=== PATIENT | male | born 1965 | race African-American/Black ===

== ENCOUNTER 2018-04-01 16:51 | Emergency (ER) | payer OTHER ==
[2018-04-01] MEDS ORDERED: Azithromycin 250 MG Tab PO ONE (17:50)
--- NOTE | 2018-04-01 18:42 | EDM.PDOC ---
ED HPI GENERAL MEDICAL PROBLEM - General Chief Complaint: Respiratory Problem Stated Complaint: SORE THROAT AND COUGH Time Seen by Provider: 04/01/18 17:29 Source of Information: Reports: Patient, RN Notes Reviewed - History of Present Illness INITIAL COMMENTS - FREE TEXT/NARRATIVE: 53 year old male with cough, sinus attila., sore throat for 6 to 7 days, getting worse, coughing up yellow and green phlegm with a lot of sinus drainage and pressre throat Pain Score (Numeric/FACES): 8 - Related Data Allergies Allergy/AdvReac Type Severity Reaction Status Date / Time No Known Allergies Allergy Verified 04/01/18 17:23 Home Meds: Home Meds Candesartan Cilexetil 0 mg PO DAILY 04/01/18 [History] Hydrochlorothiazide [Microzide] 25 mg PO DAILY 04/01/18 [History] amLODIPine [Norvasc] 0 mg PO DAILY 04/01/18 [History] Past Medical History - Past Health History Medical/Surgical History: Denies Medical/Surgical History Social & Family History - Tobacco Use Years of Tobacco use: 4 Used Tobacco, but Quit: No - Caffeine Use Caffeine Use: Reports: Coffee ED ROS GENERAL - Review of Systems Review Of Systems: See Below Constitutional: Reports: Chills. Denies: Fever HEENT: Reports: Rhinitis, Sinus Problem, Throat Pain Respiratory: Reports: Shortness of Breath, Cough Cardiovascular: Reports: Chest Pain (with coughing) GI/Abdominal: Denies: Abdominal Pain, Vomiting Musculoskeletal: Reports: Other (some achiness) Skin: Reports: No Symptoms Neurological: Denies: Headache ED EXAM, GENERAL - Physical Exam Exam: See Below General Appearance: Alert, Mild Distress Eye Exam: Bilateral Eye: PERRL Throat/Mouth: Normal Inspection, Normal Oropharynx Head: Facial Tenderness (to palp of max. sinuses). No: Facial Swelling Neck: Supple Respiratory/Chest: No Respiratory Distress, Lungs Clear. No: Rhonchi, Wheezing Cardiovascular: Regular Rate, Rhythm Neurological: Alert, Oriented, No Motor/Sensory Deficits Skin Exam: Warm, Dry, Normal Color Course - Vital Signs Last Recorded V/S: Last Vital Signs Temp 98.0 F 04/01/18 17:47 Pulse 76 04/01/18 17:47 Resp 20 04/01/18 17:47 BP 131/79 04/01/18 17:47 Pulse Ox 94 L 04/01/18 17:47 - Orders/Labs/Meds Meds: Medications Discontinued Medications Generic Name Dose Route Start Last Admin Trade Name Milady PRN Reason Stop Dose Admin Azithromycin 500 mg 04/01/18 17:50 04/01/18 17:55 Zithromax PO 04/01/18 17:51 500 mg ONETIME ONE Administration Departure - Departure Time of Disposition: 18:39 Disposition: Home, Self-Care 01 Condition: Fair Clinical Impression: Bronchitis Sinusitis Qualifiers: Sinusitis location: unspecified location Chronicity: acute Recurrence: not specified as recurrent Qualified Code(s): J01.90 - Acute sinusitis, unspecified - Discharge Information Instructions: Upper Respiratory Infection, Adult, Sinusitis, Adult Referrals: PCP,None [Primary Care Provider] - Forms: ED Department Discharge Additional Instructions: Given given Zithromax 500 mg oral while here in the ED, continue Zithromax 500 mg tomorrow and then 250 mg for the following 4 days., This will take at least 3 -5 days, probably longer to totally get back to normal but symptoms will start gradually improving day by day. Clinic if not much better within 3-5 days as expected.
== END 2018-04-01 18:51 | disposition home or self-care (01) ==
LOC: JD.ED 16:51
DX: J40 Bronchitis, not specified as acute or chronic (principal); J01.90 Acute sinusitis, unspecified; F17.290 Nicotine dependence, other tobacco product, uncomplicated; Z79.899 Other long term (current) drug therapy
CPT/HCPCS: 99283; A9270

== ENCOUNTER 2018-09-10 17:24 | Emergency (ER) | payer OTHER ==
--- NOTE | 2018-09-10 17:53 | EDM.PDOC ---
ED HPI GENERAL MEDICAL PROBLEM - General Chief Complaint: ENT Problem Stated Complaint: L EAR PAIN Time Seen by Provider: 09/10/18 17:35 Source of Information: Reports: Patient, RN Notes Reviewed History Limitations: Reports: No Limitations - History of Present Illness INITIAL COMMENTS - FREE TEXT/NARRATIVE: Patient is a 53-year-old male who presents to the ED for the evaluation of left- sided ear pain. The patient notes that he had some increased pain and swelling to his left ear. He notes this has been bothering him for about 2 weeks now. But this is getting worse and not getting much better. He denies any drainage from the ear. He has not been able to seek care management as he works a lot, he got rained out today, so he comes to the ER for evaluation. He denies any loss of hearing, tinnitus, headache, difficulty chewing or swallowing, any blurred or double vision. He notes some tenderness when he pushes on the outside of his ear as well. He has not taken any anti-inflammatory medication such as ibuprofen or Aleve for this. Left Ear Pain Score (Numeric/FACES): 8 - Related Data Allergies Allergy/AdvReac Type Severity Reaction Status Date / Time No Known Allergies Allergy Verified 09/10/18 17:33 Home Meds: Home Meds Candesartan Cilexetil 0 mg PO DAILY 04/01/18 [History] Hydrochlorothiazide [Microzide] 25 mg PO DAILY 04/01/18 [History] amLODIPine [Norvasc] 0 mg PO DAILY 04/01/18 [History] Ciprofloxacin/Dexamethasone [Ciprodex Otic Susp] 4 drop OT BID #1 bottle [Rx] Past Medical History - Past Health History Medical/Surgical History: Denies Medical/Surgical History Cardiovascular History: Reports: High Cholesterol, Hypertension Social & Family History - Tobacco Use Smoking Status *Q: Never Smoker - Caffeine Use Caffeine Use: Reports: Coffee ED ROS ENT - Review of Systems Review Of Systems: See Below Constitutional: Denies: Fever, Chills HEENT: Reports: Ear Pain (Left ear) Respiratory: Reports: No Symptoms Cardiovascular: Reports: No Symptoms Endocrine: Reports: No Symptoms GI/Abdominal: Reports: No Symptoms : Reports: No Symptoms Musculoskeletal: Reports: No Symptoms Skin: Reports: No Symptoms Neurological: Reports: No Symptoms Psychiatric: Reports: No Symptoms Hematologic/Lymphatic: Reports: No Symptoms Immunologic: Reports: No Symptoms ED EXAM, ENT - Physical Exam Exam: See Below Exam Limited By: No Limitations General Appearance: Alert, WD/WN, No Apparent Distress Eye Exam: Bilateral Eye: EOMI, Normal Inspection, PERRL Ears: Normal External Exam, Auricular Tenderness (tenderness when the tragus is depressed), Mastoid Tenderness, Canal Swelling (mild), Other (normal EAC and TM on right side.). No: Auricular Erythema, Auricular Ecchymosis, Mastoid Swelling , Canal Discharge, TM Bulging, TM Fluid, TM Perforation, Cerumen Impaction Nose: Normal Inspection Mouth/Throat: Normal Inspection, Normal Gums, Normal Lips, Normal Oropharynx, Normal Teeth Head: Atraumatic, Normocephalic Neck: Normal Inspection, Supple, Non-Tender, Full Range of Motion Respiratory/Chest: No Respiratory Distress, Lungs Clear, Normal Breath Sounds, No Accessory Muscle Use, Chest Non-Tender Cardiovascular: Normal Peripheral Pulses, Regular Rate, Rhythm, No Murmur Neurological: Alert, Oriented, Normal Cognition, No Motor/Sensory Deficits Psychiatric: Normal Affect, Normal Mood Skin: Warm, Dry, Intact, Normal Color, No Rash Course - Vital Signs Last Recorded V/S: Last Vital Signs Temp 98.1 F 09/10/18 17:34 Pulse 86 09/10/18 17:34 Resp 18 09/10/18 17:34 BP 158/108 H 09/10/18 17:34 Pulse Ox 100 09/10/18 17:34 - Re-Assessments/Exams Free Text/Narrative Re-Assessment/Exam: 09/10/18 18:10 Patient presents to the ED for the evaluation of left-sided ear pain. His left ear canal is mildly swollen, and he does have tenderness with palpation of the tragus and mastoid process. I have prescribed Ciprodex drops, 4 drops in the left ear 2 times daily for 7 days. Have recommended that he follow up with a provider after the antibiotics are done to make sure that the infection is clearing. He is understanding of this. Departure - Departure Time of Disposition: 18:03 Disposition: Home, Self-Care 01 Condition: Fair Clinical Impression: Otitis externa Qualifiers: Otitis externa type: unspecified type Chronicity: acute Laterality: left Qualified Code(s): H60.502 - Unspecified acute noninfective otitis externa, left ear - Discharge Information *PRESCRIPTION DRUG MONITORING PROGRAM REVIEWED*: No *COPY OF PRESCRIPTION DRUG MONITORING REPORT IN PATIENT JUAN C: No Prescriptions: Ciprofloxacin/Dexamethasone [Ciprodex Otic Susp] 4 drop OT BID #1 bottle Instructions: Otitis Externa, [id number], Ear Drops, Adult, [id number] Referrals: Niurka Correa MD [Primary Care Provider] - Forms: ED Department Discharge Additional Instructions: You have been evaluated in the ED today for your left sided ear pain. You have what is called otitis externa, which is an infection of the ear canal on the left side. Please use the antibiotic drops as directed for one week. The drops have been electronically prescribed to the [place] [facility] located in the [facility]. Recommend that you follow up in clinic after the course of antibiotics is done to make sure the infection is clearing. You may take 400-600 mg ibuprofen every 6 hours as needed for pain relief. Please return to the ED if her symptoms should change or worsen.
== END 2018-09-10 18:14 | disposition home or self-care (01) ==
LOC: JD.ED 17:24
DX: H60.502 Unspecified acute noninfective otitis externa, left ear (principal); Z79.899 Other long term (current) drug therapy
CPT/HCPCS: 99282; 99283

== ENCOUNTER 2020-07-30 20:51 | Emergency (ER) | payer OTHER ==
[2020-07-30] MEDS ORDERED: Acetaminophen 325 MG Tab PO ONE (22:14)
[2020-07-30] MEDS ORDERED: predniSONE 20 MG Tab PO ONE (22:47)
--- NOTE | 2020-07-30 22:53 | EDM.PDOC ---
ED HPI GENERAL MEDICAL PROBLEM - General Chief Complaint: Lower Extremity Injury/Pain Stated Complaint: LT FOOT SWELLING Time Seen by Provider: 07/30/20 22:07 Source of Information: Reports: Patient, RN Notes Reviewed - History of Present Illness INITIAL COMMENTS - FREE TEXT/NARRATIVE: 55 yr old male with L foot pain. Started yesterday, much worse today. No known injury. works as heavy duty truck mechanic. No open wounds, fever or chills. No hx gout. Left Foot Pain Score (Numeric/FACES): 10 - Related Data Allergies Allergy/AdvReac Type Severity Reaction Status Date / Time No Known Allergies Allergy Verified 07/30/20 21:05 Home Meds: Home Meds Candesartan Cilexetil 0 mg PO DAILY 04/01/18 [History] amLODIPine [Norvasc] 0 mg PO DAILY 04/01/18 [History] hydroCHLOROthiazide [Microzide] 25 mg PO DAILY 04/01/18 [History] Acetaminophen/HYDROcodone [[place] 325-5 MG] 1 tab PO Q6H PRN #14 tablet 07/30/20 [Rx] predniSONE [Prednisone] 50 mg PO DAILY #5 tablet 07/30/20 [Rx] Past Medical History - Past Health History Medical/Surgical History: Denies Medical/Surgical History HEENT History: Reports: Impaired Vision Cardiovascular History: Reports: High Cholesterol, Hypertension Respiratory History: Reports: None Gastrointestinal History: Reports: None Genitourinary History: Reports: None Musculoskeletal History: Reports: None Neurological History: Reports: None Psychiatric History: Reports: None Endocrine/Metabolic History: Reports: None Immunologic History: Reports: None Oncologic (Cancer) History: Reports: None Dermatologic History: Reports: None - Infectious Disease History Infectious Disease History: Reports: Novel Coronavirus - Past Surgical History HEENT Surgical History: Reports: None GI Surgical History: Reports: None Male Surgical History: Reports: None Musculoskeletal Surgical History: Reports: None Social & Family History - Family History Cardiac: Reports: CAD, [place] Neurological: Reports: CVA - Tobacco Use Tobacco Use Status *Q: Former Tobacco User Used Tobacco, but Quit: Yes Month/Year Tobacco Last Used: 03/2011 - Caffeine Use Caffeine Use: Reports: None - Alcohol Use Number of Drinks Per Day: 5 - Recreational Drug Use Recreational Drug Use: No Review of Systems - Review of Systems Review Of Systems: See Below Constitutional: Denies: Chills, Fever Respiratory: Denies: Shortness of Breath Cardiovascular: Denies: Chest Pain GI/Abdominal: Denies: Nausea, Vomiting Musculoskeletal: Reports: Foot Pain Skin: Denies: Rash, Erythema Neurological: Reports: No Symptoms ED EXAM, GENERAL - Physical Exam Exam: See Below General Appearance: Alert, Moderate Distress Head: Atraumatic Respiratory/Chest: No Respiratory Distress Extremities: Other (tender anterior mid foot, no visible swelling, no warmth, no erythema, ankle, leg nontender) Neurological: Alert, Oriented, No Motor/Sensory Deficits Skin Exam: Warm, Dry, Normal Color Course - Vital Signs Last Recorded V/S: Last Vital Signs Temp 99.1 F 07/30/20 21:09 Pulse 104 H 07/30/20 21:09 Resp 20 07/30/20 21:09 BP 150/102 H 07/30/20 21:09 Pulse Ox 97 07/30/20 21:09 - Orders/Labs/Meds Orders: Active Orders 24 hr Category Date Time Status Foot Comp Min 3V Lt [CR] Stat Exams 07/30/20 22:14 Taken Durable Medical Equipment for Discharge [DME for Oth 07/30/20 22:47 Ordered Discharge] [COMM] Stat Meds: Medications Discontinued Medications Generic Name Dose Route Start Last Admin Trade Name Renatoq PRN Reason Stop Dose Admin Acetaminophen 975 mg 07/30/20 22:14 07/30/20 22:24 Acetaminophen 325 Mg Tab PO 07/30/20 22:15 975 mg NOW ONE Administration Prednisone 40 mg 07/30/20 22:47 07/30/20 22:54 Prednisone 20 Mg Tab PO 07/30/20 22:48 40 mg ONETIME ONE Administration - Re-Assessments/Exams Free Text/Narrative Re-Assessment/Exam: 07/31/20 03:15 Foot X rays possible hairline proximal L 2nd metarsal but do believe it is overlying shadow. No displaced fx present. Great toe and base of large toe nontender. Possible gout. Will start him on prednisone 50 mg daily for 5 days. Of note he does appear to be dramatizing his pain to some degree. Will put him in a walking boot. Will watch for Radiologist read of foot xrays. Discharge instr. as documented. Departure - Departure Time of Disposition: 22:48 Disposition: Home, Self-Care 01 Condition: Fair Clinical Impression: Foot pain, left - Discharge Information Prescriptions: Acetaminophen/HYDROcodone [[place] 325-5 MG] 1 tab PO Q6H PRN #14 tablet PRN Reason: Pain predniSONE [Prednisone] 50 mg PO DAILY #5 tablet Instructions: Foot Pain Referrals: Kai Marley MD [Primary Care Provider] - Forms: ED Department Discharge Additional Instructions: Walking boot for 1 week or until pain resolves. Tylenol or excedrin q 6hr or hydrocodone if needed for severe pain. Do not take them both at the same time, do not drive or work when taking hydrocodone. Prednisone 50 mg daily for 5 days for inflamation. Physician will call you with Radiologist report tomorrow morning when that becomes available. Follow up clinic if not much better within 5 to 7 days as expected. Sepsis Event Note (ED) - Evaluation Sepsis Screening Result: No Definite Risk - Focused Exam Vital Signs: Vital Signs Temp Pulse Resp BP Pulse Ox 07/30/20 21:09 99.1 F 104 H 20 150/102 H 97 - My Orders Last 24 Hours: My Active Orders 07/30/20 22:14 Foot Comp Min 3V Lt [CR] Stat 07/30/20 22:47 Durable Medical Equipment for Discharge [DME for Discharge] [COMM] Stat - Assessment/Plan Last 24 Hours: My Active Orders 07/30/20 22:14 Foot Comp Min 3V Lt [CR] Stat 07/30/20 22:47 Durable Medical Equipment for Discharge [DME for Discharge] [COMM] Stat
--- NOTE | 2020-07-31 09:22 | CR ---
Left foot: 4 views left foot were obtained. Comparison: No prior foot study is available. Plantar spur is noted. Soft tissue swelling is noted. No acute fracture, dislocation or other bony abnormality is appreciated. Impression: 1. Plantar spur and soft tissue swelling. 2. No acute osseous abnormality is appreciated. Diagnostic code #2
== END 2020-07-30 23:26 | disposition home or self-care (01) ==
LOC: JD.ED 20:51
DX: M79.672 Pain in left foot (principal); I10 Essential (primary) hypertension; Z79.899 Other long term (current) drug therapy; Z87.891 Personal history of nicotine dependence
CPT/HCPCS: 73630; 99283; A9270; J7512

== ENCOUNTER 2020-11-09 11:35 | Emergency (ER) | payer OTHER ==
[2020-11-09] MEDS ORDERED: Sodium Chloride 0.9% 10 ML Syringe FLUSH PRN ×2 (12:27→13:58)
--- NOTE | 2020-11-09 13:06 | EDM.PDOC ---
ED HPI GENERAL MEDICAL PROBLEM - General Chief Complaint: Respiratory Problem Stated Complaint: SOB X 3 WEEKS Time Seen by Provider: 11/09/20 12:19 Source of Information: Reports: Patient, RN Notes Reviewed History Limitations: Reports: No Limitations - History of Present Illness INITIAL COMMENTS - FREE TEXT/NARRATIVE: Patient is a 55-year-old male who presents to the ER for evaluation of his shortness of breath that has been going on for the last two or 3 weeks. Patient notes that when he is at rest, he is fine, but anytime he starts coughing, or moving much at all, he becomes extremely winded. He did go to the walk-in clinic at [place], roughly 2 weeks ago had a Covid screen, [place] virus testing, other laboratory evaluation and everything was unremarkable, there is no sign of pneumonia, Gage virus test was negative, Covid screen was negative. He was given a few different medications for his cough, and sent home with general recommendations. States this has been going on again for some time. He was placed on a prednisone burst for roughly 5 days as well, and he states that he is about to the end of that. 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 He was given some IV antibiotics and oral antibiotics that seem to clear that up, and steroids seem to help when he has the sarcoidosis issue. He had a fever at the beginning of his symptoms, but has not had any fever at this time. He states he does have a cough, that is getting up white frothy sputum, with no discoloration. He is having nausea but no vomiting or diarrhea. He does have shortness of breath with ambulation, but not at rest. 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 Other Treatments [employer]: PCP prescribed meds pt has been taking except for today. Chest Pain Score (Numeric/FACES): 10 - Related Data Allergies Allergy/AdvReac Type Severity Reaction Status Date / Time No Known Allergies Allergy Verified 07/30/20 21:05 Home Meds: Home Meds Candesartan Cilexetil 0 mg PO DAILY 04/01/18 [History] amLODIPine [Norvasc] 0 mg PO DAILY 04/01/18 [History] hydroCHLOROthiazide [Microzide] 25 mg PO DAILY 04/01/18 [History] predniSONE 20 mg PO ASDIRECTED #30 tab 11/09/20 [Rx] Past Medical History - Past Health History Medical/Surgical History: Denies Medical/Surgical History HEENT History: Reports: Impaired Vision Cardiovascular History: Reports: High Cholesterol, Hypertension Respiratory History: Reports: None Other Respiratory History: Sarcoid in left lung [id number], treated in [facility], Dr. Hallman [employer] Gastrointestinal History: Reports: None Genitourinary History: Reports: None Musculoskeletal History: Reports: None, Gout Neurological History: Reports: None Psychiatric History: Reports: None Endocrine/Metabolic History: Reports: None Immunologic History: Reports: None Oncologic (Cancer) History: Reports: None Dermatologic History: Reports: None - Infectious Disease History Infectious Disease History: Reports: Novel Coronavirus, Pertussis (Whooping Cough) - Past Surgical History HEENT Surgical History: Reports: None Respiratory Surgical History: Reports: Lung Biopsies Other Respiratory Surgeries/Procedures: Left lung GI Surgical History: Reports: None Male Surgical History: Reports: None Musculoskeletal Surgical History: Reports: None Social & Family History - Family History Cardiac: Reports: CAD, NM Neurological: Reports: CVA - Tobacco Use Tobacco Use Status *Q: Current Every Day Tobacco User Years of Tobacco use: 10 Packs/Tins Daily: 0.2 Used Tobacco, but Quit: Yes Month/Year Tobacco Last Used: 10/2020 - Caffeine Use Caffeine Use: Reports: None - Alcohol Use Days Per Week of Alcohol Use: 7 Number of Drinks Per Day: 5 Total Drinks Per Week: 35 Date of Last Drink: 11/08/20 - Recreational Drug Use Recreational Drug Use: No ED ROS GENERAL - Review of Systems Review Of Systems: Comprehensive ROS is negative, except as noted in HPI. ED EXAM, GENERAL - Physical Exam Exam: See Below Exam Limited By: No Limitations General Appearance: Alert, WD/WN, No Apparent Distress Respiratory/Chest: No Respiratory Distress, Lungs Clear, Normal Breath Sounds, No Accessory Muscle Use, Chest Non-Tender Cardiovascular: Normal Peripheral Pulses, Regular Rate, Rhythm, No Edema Peripheral Pulses: 2+: Radial (L), Radial (R) Extremities: Normal Inspection, Normal Capillary Refill Neurological: Alert, Oriented, Normal Cognition, No Motor/Sensory Deficits Psychiatric: Normal Affect, Normal Mood Skin Exam: Warm, Dry, Intact, Normal Color, No Rash #1 Interpretation EKG Date: 11/09/20 Time: 13:19 Rhythm: NSR Rate (Beats/Min): 86 [place]: Normal P-Wave: Present QRS: Normal ST-T: Normal QT: Normal Comparison: NA - No Prior EKG EKG Interpretation Comments: No obvious ischemia or acute ST changes noted, reviewed by myself and Dr. Nieves. Course - Vital Signs Last Recorded V/S: Last Vital Signs Temp 97.4 F 11/09/20 11:58 Pulse 79 11/09/20 12:23 Resp 24 H 11/09/20 12:23 BP 110/80 11/09/20 12:23 Pulse Ox 94 L 11/09/20 12:23 - Orders/Labs/Meds Orders: Active Orders 24 hr Category Date Time Status Peripheral IV Care [RC] . DIRECTED Care 11/09/20 12:27 Ordered RESPIRATORY PANEL Stat Lab 11/09/20 13:15 Received Sodium Chloride 0.9% [Normal Saline] 100 ml Med 11/09/20 14:00 Active IV ASDIRECTED Sodium Chloride 0.9% [Saline Flush] Med 11/09/20 12:27 Active 10 ml FLUSH ASDIRECTED PRN Sodium Chloride 0.9% [Saline Flush] Med 11/09/20 13:58 Active 10 ml FLUSH ONETIME PRN Isolation [COMM] Routine Oth 11/09/20 13:18 Ordered Peripheral IV Insertion Adult [OM.PC] Routine Oth 11/09/20 12:27 Ordered Medication Orders Sodium Chloride (Normal Saline) 100 mls @ 75 mls/hr IV ASDIRECTED CARLOS Last Admin: 11/09/20 14:26 Dose: 75 mls/hr Documented by: CHEO Sodium Chloride (Sodium Chloride 0.9% 10 Ml Syringe) 10 ml FLUSH ASDIRECTED PRN PRN Reason: Keep Vein Open Last Admin: 11/09/20 14:51 Dose: 10 ml Documented by: SOPHY Sodium Chloride (Sodium Chloride 0.9% 10 Ml Syringe) 10 ml FLUSH ONETIME PRN PRN Reason: IV FLUSH Last Admin: 11/09/20 14:26 Dose: 10 ml Documented by: CHEO Labs: Laboratory Tests 11/09/20 11/09/20 11/09/20 Range/Units 12:35 13:25 13:25 WBC 8.04 (4.23-9.07) K/mm3 RBC 3.53 L (4.63-6.08) M/mm3 Hgb 12.2 L (13.7-17.5) gm/dl Hct 37.1 L (40.1-51.0) % MCV 105.1 H (79.0-92.2) fl MCH 34.6 H (25.7-32.2) pg MCHC 32.9 (32.2-35.5) g/dl RDW Std Deviation 50.3 H (35.1-43.9) fL Plt Count 219 (163-337) K/mm3 MPV 10.2 (9.4-12.3) fl Neut % (Auto) 70.0 H (34.0-67.9) % Lymph % (Auto) 15.0 L (21.8-53.1) % Emery % (Auto) 12.4 H (5.3-12.2) % Eos % (Auto) 0.6 L (0.8-7.0) Baso % (Auto) 0.1 (0.1-1.2) % Neut # (Auto) 5.62 H (1.78-5.38) K/mm3 Lymph # (Auto) 1.21 L (1.32-3.57) K/mm3 Emery # (Auto) 1.00 H (0.30-0.82) K/mm3 Eos # (Auto) 0.05 (0.04-0.54) K/mm3 Baso # (Auto) 0.01 (0.01-0.08) K/mm3 Manual Slide Review Abnormal smear PT (9.7-12.0) SECONDS INR APTT (21.7-31.4) SECONDS D-Dimer, Quantitative (0.19-0.50) mg/L Sodium (136-145) mEq/L Potassium (3.5-5.1) mEq/L Chloride (98-107) mEq/L Carbon Dioxide (21-32) mEq/L Anion Gap (5-15) BUN (7-18) mg/dL Creatinine (0.7-1.3) mg/dL Est Cr Clr Drug Dosing mL/min Estimated GFR (MDRD) (>60) mL/min BUN/Creatinine Ratio (14-18) Glucose (70-99) mg/dL Lactic Acid (0.4-2.0) mmol/L Calcium (8.5-10.1) mg/dL Magnesium (1.8-2.4) mg/dL Total Bilirubin (0.2-1.0) mg/dL AST (15-37) U/L ALT (16-63) U/L Alkaline Phosphatase (46-116) U/L Troponin I (0.00-0.056) ng/mL C-Reactive Protein 17.1 H* (<1.0) mg/dL NT-Pro-B Natriuret Pep (0-125) pg/mL Total Protein (6.4-8.2) g/dl Albumin (3.4-5.0) g/dl Globulin gm/dL Albumin/Globulin Ratio (1-2) Influenza Type A RNA Negative (NEGATIVE) Influenza Type B RNA Negative (NEGATIVE) Mycoplasma pneumon IgM (NEGATIVE) SARS-CoV-2 RNA (JOJO) Negative (NEGATIVE) 11/09/20 11/09/20 11/09/20 Range/Units 13:25 13:25 13:25 WBC (4.23-9.07) K/mm3 RBC (4.63-6.08) M/mm3 Hgb (13.7-17.5) gm/dl Hct (40.1-51.0) % MCV (79.0-92.2) fl MCH (25.7-32.2) pg MCHC (32.2-35.5) g/dl RDW Std Deviation (35.1-43.9) fL Plt Count (163-337) K/mm3 MPV (9.4-12.3) fl Neut % (Auto) (34.0-67.9) % Lymph % (Auto) (21.8-53.1) % Emery % (Auto) (5.3-12.2) % Eos % (Auto) (0.8-7.0) Baso % (Auto) (0.1-1.2) % Neut # (Auto) (1.78-5.38) K/mm3 Lymph # (Auto) (1.32-3.57) K/mm3 Emery # (Auto) (0.30-0.82) K/mm3 Eos # (Auto) (0.04-0.54) K/mm3 Baso # (Auto) (0.01-0.08) K/mm3 Manual Slide Review PT 13.7 H (9.7-12.0) SECONDS INR 1.29 APTT 28.9 (21.7-31.4) SECONDS D-Dimer, Quantitative 2.16 H (0.19-0.50) mg/L Sodium 133 L (136-145) mEq/L Potassium 3.0 L (3.5-5.1) mEq/L Chloride 97 L (98-107) mEq/L Carbon Dioxide 29 (21-32) mEq/L Anion Gap 10.0 (5-15) BUN 26 H (7-18) mg/dL Creatinine 1.7 H (0.7-1.3) mg/dL Est Cr Clr Drug Dosing 55.49 mL/min Estimated GFR (MDRD) 51 (>60) mL/min BUN/Creatinine Ratio 15.3 (14-18) Glucose 119 H (70-99) mg/dL Lactic Acid (0.4-2.0) mmol/L Calcium 8.3 L (8.5-10.1) mg/dL Magnesium 2.6 H (1.8-2.4) mg/dL Total Bilirubin 1.0 (0.2-1.0) mg/dL AST 60 H (15-37) U/L ALT 42 (16-63) U/L Alkaline Phosphatase 151 H (46-116) U/L Troponin I < 0.017 (0.00-0.056) ng/mL C-Reactive Protein (<1.0) mg/dL NT-Pro-B Natriuret Pep 140 H (0-125) pg/mL Total Protein 8.2 (6.4-8.2) g/dl Albumin 1.8 L (3.4-5.0) g/dl Globulin 6.4 gm/dL Albumin/Globulin Ratio 0.3 L (1-2) Influenza Type A RNA (NEGATIVE) Influenza Type B RNA (NEGATIVE) Mycoplasma pneumon IgM (NEGATIVE) SARS-CoV-2 RNA (JOJO) (NEGATIVE) 11/09/20 11/09/20 Range/Units 13:25 13:25 WBC (4.23-9.07) K/mm3 RBC (4.63-6.08) M/mm3 Hgb (13.7-17.5) gm/dl Hct (40.1-51.0) % MCV (79.0-92.2) fl MCH (25.7-32.2) pg MCHC (32.2-35.5) g/dl RDW Std Deviation (35.1-43.9) fL Plt Count (163-337) K/mm3 MPV (9.4-12.3) fl Neut % (Auto) (34.0-67.9) % Lymph % (Auto) (21.8-53.1) % Emery % (Auto) (5.3-12.2) % Eos % (Auto) (0.8-7.0) Baso % (Auto) (0.1-1.2) % Neut # (Auto) (1.78-5.38) K/mm3 Lymph # (Auto) (1.32-3.57) K/mm3 Emery # (Auto) (0.30-0.82) K/mm3 Eos # (Auto) (0.04-0.54) K/mm3 Baso # (Auto) (0.01-0.08) K/mm3 Manual Slide Review PT (9.7-12.0) SECONDS INR APTT (21.7-31.4) SECONDS D-Dimer, Quantitative (0.19-0.50) mg/L Sodium (136-145) mEq/L Potassium (3.5-5.1) mEq/L Chloride (98-107) mEq/L Carbon Dioxide (21-32) mEq/L Anion Gap (5-15) BUN (7-18) mg/dL Creatinine (0.7-1.3) mg/dL Est Cr Clr Drug Dosing mL/min Estimated GFR (MDRD) (>60) mL/min BUN/Creatinine Ratio (14-18) Glucose (70-99) mg/dL Lactic Acid 1.5 (0.4-2.0) mmol/L Calcium (8.5-10.1) mg/dL Magnesium (1.8-2.4) mg/dL Total Bilirubin (0.2-1.0) mg/dL AST (15-37) U/L ALT (16-63) U/L Alkaline Phosphatase (46-116) U/L Troponin I (0.00-0.056) ng/mL C-Reactive Protein (<1.0) mg/dL NT-Pro-B Natriuret Pep (0-125) pg/mL Total Protein (6.4-8.2) g/dl Albumin (3.4-5.0) g/dl Globulin gm/dL Albumin/Globulin Ratio (1-2) Influenza Type A RNA (NEGATIVE) Influenza Type B RNA (NEGATIVE) Mycoplasma pneumon IgM Negative (NEGATIVE) SARS-CoV-2 RNA (JOJO) (NEGATIVE) Meds: Medications Generic Name Dose Route Start Last Admin Trade Name Freq PRN Reason Stop Dose Admin Sodium Chloride 100 mls @ 75 mls/hr 11/09/20 14:00 11/09/20 14:26 Normal Saline IV 75 mls/hr ASDIRECTED CARLOS Administration Sodium Chloride 10 ml 11/09/20 12:27 11/09/20 14:51 Sodium Chloride 0.9% 10 Ml Syringe FLUSH 10 ml ASDIRECTED PRN Administration Keep Vein Open Sodium Chloride 10 ml 11/09/20 13:58 11/09/20 14:26 Sodium Chloride 0.9% 10 Ml Syringe FLUSH 10 ml ONETIME PRN Administration IV FLUSH Discontinued Medications Generic Name Dose Route Start Last Admin Trade Name Milady PRN Reason Stop Dose Admin Iopamidol 100 ml 11/09/20 13:58 11/09/20 14:26 Iopamidol 755 Mg/Ml 100 Ml Bottle IVPUSH 11/09/20 13:59 100 ml ONETIME ONE Administration Potassium Chloride 40 meq 11/09/20 14:26 11/09/20 15:11 Potassium Chloride 20 Meq Tab.Er PO 11/09/20 14:27 40 meq ONETIME ONE Administration - Re-Assessments/Exams Free Text/Narrative Re-Assessment/Exam: 11/09/20 13:07 Patient presents to the ED for his ongoing SOB x 3 weeks. He will be re-checked for COVID-19, we will take a chest x-ray and many other labs for initial ma nagement. I will also be in contact with infectious disease at [facility] for general information regarding mouse borne illness. 11/09/20 13:[address] Hobbs, with infectious disease at [facility], and I did go over the patient's course of management/care, and she is states that if the patient was likely infected with hantavirus, he would be more sick, and/or possibly . She said to wait for lab evaluation, as it is more common to have any sort of CHF, Covid or community-acquired pneumonia, which I already kind of new. She states that other mouse borne illness would be leptospirosis, but this requires saliva exchange or a bite. She also would recommend a respiratory viral panel to be obtained, and that he could possibly be swabbed for pertussis if his work-up came back negative. 11/09/20 14:29 Laboratory evaluation has resulted, CBC is essentially unremarkable for infectious purposes. D-dimer is elevated at over 2. Metabolic panel is impressive for a slightly low potassium at 3.0. CRP is elevated at 17.0. Troponin is undetectably low. The patient's influenza/Covid screen were negative for today's purposes. The patient's mycoplasma screen was also negative. Have ordered that respiratory viral panel to the taken, this will have to be sent to a reference lab, and will take some time to result. I have ordered a CTA of his chest for the elevated D-dimer with a negative Covid result for evaluation of poss PE vs other. Patient's chest x-ray also demonstrated patchy increased density within the left upper chest and minimal density within the left lower chest, please correlate if patient has positive Covid disease. 11/09/20 14:58 The patient's CTA did come back, and demonstrated patchy areas of increased density within the left upper and left lower lung as well as minimally on the right side, findings presumably represent diffuse pneumonia. Please consider repeating Covid study in several days to confirm a negative result. No findings of a pulmonary embolism. There are some calcified lymph nodes compatible with previous granulomatous exposure. 11/09/20 15:45 I did go over the patient's case and clinical results with Dr. Vargas our hospitalist, for direction on management of this patient since he is an internal medicine doctor. He believes the patient is suffering possibly from a hypersensitivity reaction, due to the CRP being elevated. He recommends taking the patient on prednisone 40 mg for 7 days, and then backing it down to 10 mg daily until he can be seen by pulmonology. Patient is already on prednisone, his last dose was supposed to be today. We will have him continue this as directed and give him a few more tablets for ongoing management. Patient verbalized understanding of this plan. Respiratory viral panel is still pending and we will call him with results once we receive these. Departure - Departure Time of Disposition: 15:46 Disposition: Home, Self-Care 01 Condition: Fair Clinical Impression: Viral pneumonia, Elevated C-reactive protein, Elevated d-dimer - Discharge Information *PRESCRIPTION DRUG MONITORING PROGRAM REVIEWED*: No *COPY OF PRESCRIPTION DRUG MONITORING REPORT IN PATIENT JUAN C: No Prescriptions: predniSONE 20 mg PO ASDIRECTED #30 tab Instructions: Shortness of Breath, Adult, [id number] Referrals: Kai Marley MD [Primary Care Provider] - Forms: ED Department Discharge, ED Return to Work/School Form Additional Instructions: You were evaluated in the ER today for your ongoing lung disease/illness. Your COVID-19 test at today's visit again came back negative. Your chest x-ray and CT are suspicious for viral pneumonia in your left lung. There are no antibiotics to be given for this, but you have been taking prednisone for management, and you will need to continue taking this. A respiratory viral panel was taken at today's visit as well for further evaluation of ongoing disease. This will take some time (48-72hrs) to result, we will call you if anything is positive or suspicious and needs immediate treatment. You will need to follow-up with pulmonology, please call Dr. Marley either today, early tomorrow morning to help facilitate a referral to pulmonology that you have seen before. Dosing for the prednisone will be 20 mg 2 times a day for the next 5 days, and then only 10 mg daily until gone. I am hoping that you will be able to get into pulmonology, and that you should not need any more of this medication prior to getting into pulmonology however if you run out, please call Dr. Marley for refill of this medication. This medication was electronically sent to the [facility] pharmacy located on [address]. You may continue to use all other medications as previously prescribed. Do not hesitate to return to the ER at any time if symptoms change or worsen. Sepsis Event Note (ED) - Evaluation Sepsis Screening Result: No Definite Risk - Focused Exam Vital Signs: Vital Signs Temp Pulse Resp BP Pulse Ox 11/09/20 12:23 79 24 H 110/80 94 L 11/09/20 11:58 97.4 F 83 16 104/70 93 L - My Orders Last 24 Hours: My Active Orders 11/09/20 12:27 Peripheral IV Care [RC] . DIRECTED Sodium Chloride 0.9% [Saline Flush] 10 ml FLUSH ASDIRECTED PRN Peripheral IV Insertion Adult [OM.PC] Routine 11/09/20 13:15 RESPIRATORY PANEL Stat 11/09/20 13:18 Isolation [COMM] Routine 11/09/20 13:58 Sodium Chloride 0.9% [Saline Flush] 10 ml FLUSH ONETIME PRN 11/09/20 14:00 Sodium Chloride 0.9% [Normal Saline] 100 ml IV ASDIRECTED - Assessment/Plan Last 24 Hours: My Active Orders 11/09/20 12:27 Peripheral IV Care [RC] . DIRECTED Sodium Chloride 0.9% [Saline Flush] 10 ml FLUSH ASDIRECTED PRN Peripheral IV Insertion Adult [OM.PC] Routine 11/09/20 13:15 RESPIRATORY PANEL Stat 11/09/20 13:18 Isolation [COMM] Routine 11/09/20 13:58 Sodium Chloride 0.9% [Saline Flush] 10 ml FLUSH ONETIME PRN 11/09/20 14:00 Sodium Chloride 0.9% [Normal Saline] 100 ml IV ASDIRECTED
[2020-11-09 13:19] LABS: CORONAVIRUS COVID-19 NAA NEGATIVE (NEGATIVE)
[2020-11-09] MEDS ORDERED: Iopamidol 755 Mg/ML 100 ML Bottle IVPUSH ONE (13:58)
[2020-11-09] MEDS ORDERED: Sodium Chloride 0.9% 100 ML IV SCH (14:00)
--- NOTE | 2020-11-09 14:09 | CR ---
Chest: Portable view of the chest was obtained. Comparison: No prior study. Patchy increased density within the left upper chest is seen. Minimal density within is noted within the left lower chest. Right lung is clear. Heart size and mediastinum are normal. Impression: 1. Patchy increased density within the left upper chest and minimal density within the left lower chest. Please correlate if patient has positive COVID disease. Diagnostic code #3
[2020-11-09] MEDS ORDERED: Potassium Chloride 20 MEQ Tab.ER PO ONE (14:26)
--- NOTE | 2020-11-09 14:48 | CT ---
CT chest Technique: Multiple axial sections through the chest were obtained. Intravenous contrast was utilized. Study has been performed as a pulmonary angiogram protocol. Comparison: Prior chest x-ray performed earlier on the same day (12:35 PM). Findings: Pulmonary arteries show no filling defects. Nothing is appreciated to indicate pulmonary embolism. Thoracic aorta shows no aneurysm. No mediastinal adenopathy is seen. No pericardial thickening is seen. Calcified lymph nodes are noted within the mediastinum. Calcified lymph nodes are also noted within the left hilar region. Small portion of the visualized upper abdominal structures show no discrete abnormality. Lung window settings were reviewed. Consolidation seen within a large portion of the left lower lung. Additional area of consolidation is seen within the superior left lower lung as well as left upper lung. Smaller areas of increased density are noted within the medial right lower lung. No pleural effusions or pneumothorax are seen. Bone window settings were reviewed which show no acute osseous abnormality. Impression: 1. Patchy areas of increased density within the left upper and left lower lung as well as minimally on the right side. Findings presumably represent diffuse pneumonia. Please consider repeating COVID study in several days to confirm negative result. 2. No findings of pulmonary embolism. 3. Calcified lymph nodes compatible with previous granulomatous exposure. Diagnostic code #3
[2020-11-10 13:46] LABS: BORDETELLA PARAPERT IS1001 Not Detected (Not Detected)
== END 2020-11-09 16:00 | disposition home or self-care (01) ==
LOC: JD.ED 11:35
DX: J12.9 Viral pneumonia, unspecified (principal); R79.1 Abnormal coagulation profile; R79.82 Elevated C-reactive protein (CRP); I10 Essential (primary) hypertension; M10.9 Gout, unspecified; Z72.0 Tobacco use; Z79.899 Other long term (current) drug therapy; Z20.822 Contact with and (suspected) exposure to COVID-19
CPT/HCPCS: 0240U; 36415; 71045; 71275; 80053; 83605; 83735; 83880; 84484; 85025; 85379; 85610; 85730; 86140; 86738; 87486; 87581; 87633; 87798; 93005; 99285; A9270; Q9967; 93010; 99284

== ENCOUNTER 2021-03-14 06:23 | Emergency (ER) | payer OTHER ==
[2021-03-14] MEDS ORDERED: Naproxen 500 MG Tab PO ONE (06:56)
--- NOTE | 2021-03-14 07:01 | EDM.PDOC ---
ED HPI GENERAL MEDICAL PROBLEM - General Chief Complaint: Lower Extremity Injury/Pain Stated Complaint: RT SWOLLEN FOOT Time Seen by Provider: 03/14/21 06:51 Source of Information: Reports: Patient History Limitations: Reports: No Limitations - History of Present Illness INITIAL COMMENTS - FREE TEXT/NARRATIVE: The patient presents with left foot pain. He does not recall an injury. 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 He did have gout in his right foot in July. He has no fever, chills, cough, chest pain or shortness of breath. Onset: Sudden Duration: Day(s): (yesterday) Location: Reports: Lower Extremity, Left (foot) Quality: Reports: Sharp Severity: Severe Improves with: Reports: None Worsens with: Reports: None Associated Symptoms: Reports: No Other Symptoms Treatments DESK ASSISTANT: Reports: Acetaminophen, NSAIDS Left Upper Feet Pain Score (Numeric/FACES): 10 - Related Data Allergies Allergy/AdvReac Type Severity Reaction Status Date / Time No Known Allergies Allergy Verified 03/14/21 06:42 Home Meds: Home Meds Candesartan Cilexetil 4 mg PO DAILY 04/01/18 [History] amLODIPine [Norvasc] 10 mg PO DAILY 04/01/18 [History] hydroCHLOROthiazide [Microzide] 25 mg PO DAILY 04/01/18 [History] Hydrocodone/Acetaminophen [Hydrocodone-Acetamin 5-325 mg] 1 - 2 each PO Q6H PRN #15 tablet 03/14/21 [Rx] predniSONE [Prednisone] 40 mg PO DAILY #10 tablet 03/14/21 [Rx] Past Medical History - Past Health History Medical/Surgical History: Denies Medical/Surgical History HEENT History: Reports: Impaired Vision Cardiovascular History: Reports: High Cholesterol, Hypertension Respiratory History: Reports: None Other Respiratory History: 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 Hallman [employer] Gastrointestinal History: Reports: None Genitourinary History: Reports: None Musculoskeletal History: Reports: Gout Neurological History: Reports: None Psychiatric History: Reports: None Endocrine/Metabolic History: Reports: None Immunologic History: Reports: None Oncologic (Cancer) History: Reports: None Dermatologic History: Reports: None - Infectious Disease History Infectious Disease History: Reports: Novel Coronavirus, Pertussis (Whooping Cough) - Past Surgical History HEENT Surgical History: Reports: None Respiratory Surgical History: Reports: Lung Biopsies Other Respiratory Surgeries/Procedures: Left lung GI Surgical History: Reports: None Male Surgical History: Reports: None Musculoskeletal Surgical History: Reports: None Social & Family History - Family History Cardiac: Reports: CAD, [place] Neurological: Reports: CVA - Tobacco Use Tobacco Use Status *Q: Never Tobacco User - Caffeine Use Caffeine Use: Reports: None - Alcohol Use Days Per Week of Alcohol Use: 7 Number of Drinks Per Day: 2 Total Drinks Per Week: 14 - Recreational Drug Use Recreational Drug Use: No Review of Systems - Review of Systems Review Of Systems: See Below Constitutional: Reports: No Symptoms Eyes: Reports: No Symptoms Ears: Reports: No Symptoms Nose: Reports: No Symptoms Mouth/Throat: Reports: No Symptoms Respiratory: Reports: No Symptoms Cardiovascular: Reports: No Symptoms GI/Abdominal: Reports: No Symptoms Genitourinary: Reports: No Symptoms Musculoskeletal: Reports: Other (Left foot pain) ED EXAM, GENERAL - Physical Exam Exam: See Below Exam Limited By: No Limitations General Appearance: Alert, No Apparent Distress Ears: Normal External Exam Nose: Normal Inspection Head: Atraumatic, Normocephalic Neck: Normal Inspection Respiratory/Chest: No Respiratory Distress Extremities: Other (Pain upon palpation to the top of his foot with good sensation and pulses.) Course - Vital Signs Last Recorded V/S: Last Vital Signs Temp 99.1 F 03/14/21 06:35 Pulse 88 03/14/21 06:35 Resp 18 03/14/21 06:35 BP 172/115 H 03/14/21 06:35 Pulse Ox 95 03/14/21 06:35 - Orders/Labs/Meds Orders: Active Orders 24 hr Category Date Time Status Foot Comp Min 3V Lt [CR] Stat Exams 03/14/21 06:56 Taken Meds: Medications Discontinued Medications Generic Name Dose Route Start Last Admin Trade Name Milady PRN Reason Stop Dose Admin Naproxen 500 mg 03/14/21 06:56 03/14/21 07:13 Naproxen 500 Mg Tab PO 03/14/21 06:57 500 mg ONETIME ONE Administration - Re-Assessments/Exams Free Text/Narrative Re-Assessment/Exam: 03/14/21 07:00 I ordered an x-ray and naprosyn. 03/14/21 07:27 His x-ray looks good. I feel he has gout. I will get him on prednisone and hydrocodone. Departure - Departure Time of Disposition: 07:30 Disposition: Home, Self-Care 01 Condition: Good Clinical Impression: Gout attack Qualifiers: Gout site: foot Gout etiology: other secondary cause Laterality: left Qualified Code(s): M10.472 - Other secondary gout, left ankle and foot - Discharge Information *PRESCRIPTION DRUG MONITORING PROGRAM REVIEWED*: Not Applicable *COPY OF PRESCRIPTION DRUG MONITORING REPORT IN PATIENT JUAN C: Not Applicable Prescriptions: Hydrocodone/Acetaminophen [Hydrocodone-Acetamin 5-325 mg] 1 - 2 each PO Q6H PRN #15 tablet PRN Reason: Pain predniSONE [Prednisone] 40 mg PO DAILY #10 tablet Referrals: Kai Marley MD [Primary Care Provider] - 1 Week Forms: ED Department Discharge Additional Instructions: Take the prednisone 40mg daily for 5 days. Take hydrocodone as needed for pain. Please return if you are worse. Sepsis Event Note (ED) - Evaluation Sepsis Screening Result: No Definite Risk - Focused Exam Vital Signs: Vital Signs Temp Pulse Resp BP Pulse Ox 03/14/21 06:35 99.1 F 88 18 172/115 H 95 - My Orders Last 24 Hours: My Active Orders 03/14/21 06:56 Foot Comp Min 3V Lt [CR] Stat - Assessment/Plan Last 24 Hours: My Active Orders 03/14/21 06:56 Foot Comp Min 3V Lt [CR] Stat
--- NOTE | 2021-03-14 08:54 | CR ---
Foot: 3 views of the left foot were obtained. Comparison: Prior left foot study of 07/30/20. Stable plantar spur is noted. Joint spaces are preserved. No acute fracture, dislocation or other bony abnormality is appreciated. Impression: 1. Stable plantar spur. 2. Nothing acute is seen on left foot exam. Diagnostic code #2
== END 2021-03-14 07:55 | disposition home or self-care (01) ==
LOC: JD.ED 06:23
DX: M10.472 Other secondary gout, left ankle and foot (principal)
CPT/HCPCS: 73630; 99283; A9270

== ENCOUNTER 2021-12-04 10:11 | Emergency (ER) | payer OTHER | END 2021-12-04 11:47 | disposition home or self-care (01) | LOC: JD.ED 10:11 | DX: M79.671 Pain in right foot (principal); F17.210 Nicotine dependence, cigarettes, uncomplicated; I10 Essential (primary) hypertension; Z79.899 Other long term (current) drug therapy | CPT/HCPCS: 73630-26-RT; 73630-RT; 99283; 99284 ==

== ENCOUNTER 2022-11-08 07:59 | Emergency (ER) | payer OTHER ==
[2022-11-08 09:19] LABS: BASOPHILS ABSOLUTE AUTO 0.03 K/mm3 (0.01-0.08); BASOPHILS PERCENT AUTO 0.8 % (0.1-1.2); EOSINOPHILS ABSOLUTE AUTO 0.23 K/mm3 (0.04-0.54); EOSINOPHILS PERCENT AUTO 6.4 (0.8-7.0); HEMATOCRIT 37.2 % (40.1-51.0); HEMOGLOBIN 12.4 gm/dl (13.7-17.5); LYMPHOCYTES ABSOLUTE AUTO 1.55 K/mm3 (1.32-3.57); LYMPHOCYTES PERCENT AUTO 43.4 % (21.8-53.1); MEAN CORPUSCULAR HEMOGLOBIN 32.7 pg (25.7-32.2); MEAN CORPUSCULAR HGB CONC 33.3 g/dl (32.2-35.5); MEAN PLATELET VOLUME 10.4 fl (9.4-12.3); MONOCYTES ABSOLUTE AUTO 0.74 K/mm3 (0.30-0.82); MONOCYTES PERCENT AUTO 20.7 % (5.3-12.2); NEUTROPHILS ABSOLUTE AUTO 1.02 K/mm3 (1.78-5.38); NEUTROPHILS PERCENT AUTO 28.7 % (34.0-67.9); RED BLOOD CELL COUNT 3.79 M/mm3 (4.63-6.08); WHITE BLOOD CELL COUNT,WBC 3.57 K/mm3 (4.23-9.07)
[2022-11-08 09:25] LABS: MEAN CORPUSCULAR VOLUME 98.2 fl (79.0-92.2); PLATELET COUNT,PLT 108 K/mm3 (163-337)
[2022-11-08 09:54] LABS: A/G RATIO 0.6 (1-2); ALBUMIN 2.6 g/dl (3.4-5.0); ANION GAP 10.3 (5-15); BILIRUBIN TOTAL 1.9 mg/dL (0.2-1.0); BUN/CREATININE RATIO 10.7 (14-18); CALCIUM 8.7 mg/dL (8.5-10.1); CREATININE 1.4 mg/dL (0.7-1.3); EST CRCL DRUG DOSING (CG) 60.11 mL/min; POTASSIUM,K 4.3 mEq/L (3.5-5.1); PROTEIN TOTAL,TP 7.3 g/dl (6.4-8.2)
[2022-11-08 09:55] LABS: APPEARANCE,URINE CLEAR (Clear); BILIRUBIN,URINE NEGATIVE (Negative); COLOR,URINE YELLOW (Yellow); GLUCOSE,URINE NEGATIVE (Negative); KETONES,URINE NEGATIVE (Negative); LEUKOCYTE ESTERASE,URINE NEGATIVE (Negative); NITRITE,URINE NEGATIVE (Negative); OCCULT BLOOD,URINE NEGATIVE (Negative); PH,URINE 5.5 (5.0-8.0); PROTEIN,URINE NEGATIVE (Negative)
[2022-11-08 10:43] LABS: RBC,URINE 0-5 /hpf (0-5); SQUAMOUS EPITHELIAL CELLS,UR 0-5 /hpf (0-5); WBC,URINE 0-5 /hpf (0-5)
[2022-11-08 10:44] LABS: BACTERIA,URINE MODERATE /hpf (FEW); MUCUS,URINE MODERATE /hpf (FEW)
[2022-11-08 10:57] LABS: SLIDE REVIEW ABNORMAL SMEAR
== END 2022-11-08 11:00 | disposition home or self-care (01) ==
LOC: JD.ED 07:59
DX: R60.0 Localized edema (principal); I10 Essential (primary) hypertension; Z86.16 Personal history of COVID-19; Z79.899 Other long term (current) drug therapy
CPT/HCPCS: 36415; 71045; 71045-26; 80053; 81001; 83880; 85025; 93005; 93010; 99284

== ENCOUNTER 2023-10-18 20:46 | Emergency (ER) | payer SELFPAY ==
[2023-10-18 21:57] LABS: BASOPHILS PERCENT AUTO 0.6 % (0.0-1.0); EOSINOPHILS ABSOLUTE AUTO 0.1 K/mm3 (0.0-0.4); EOSINOPHILS PERCENT AUTO 3.8 % (0.0-6.0); HEMATOCRIT 35.9 % (42.0-52.0); HEMOGLOBIN 12.3 gm/dl (14.0-18.0); IMMATURE GRAN ABSOLUTE AUTO 0.02 K/mm3 (0.00-0.05); IMMATURE GRAN PERCENT AUTO 0.6 % (0.0-0.4); LYMPHOCYTES ABSOLUTE AUTO 1.2 K/mm3 (1.0-4.8); LYMPHOCYTES PERCENT AUTO 36.1 % (24.0-44.0); MEAN CORPUSCULAR HEMOGLOBIN 36.4 pg (28.0-32.0); MEAN CORPUSCULAR HGB CONC 34.3 g/dl (32.0-36.0); MEAN CORPUSCULAR VOLUME 106.2 fl (83.0-99.0); MEAN PLATELET VOLUME 10.1 fl (9.4-12.4); MONOCYTES ABSOLUTE AUTO 0.5 K/mm3 (0.0-0.8); MONOCYTES PERCENT AUTO 14.2 % (0.0-8.0); NEUTROPHILS ABSOLUTE AUTO 1.5 K/mm3 (1.8-7.7); NEUTROPHILS PERCENT AUTO 44.7 % (41.0-71.0); PLATELET COUNT,PLT 87 K/mm3 (150-400); RED BLOOD CELL COUNT 3.38 M/mm3 (4.52-5.90); WHITE BLOOD CELL COUNT,WBC 3.38 K/mm3 (3.9-11.3)
[2023-10-18 22:18] LABS: SLIDE REVIEW ABNORMAL SMEAR
[2023-10-18 22:24] LABS: A/G RATIO 0.5 (1-2); ALBUMIN 2.3 g/dl (3.4-5.0); ANION GAP 8.5 (5-15); BILIRUBIN TOTAL 2.7 mg/dL (0.2-1.0); BUN/CREATININE RATIO 5.7 (14-18); C-REACTIVE PROTEIN 0.7 mg/dL (<0.30); CALCIUM 7.9 mg/dL (8.5-10.1); CREATININE 1.4 mg/dL (0.7-1.3); EST CRCL DRUG DOSING (CG) 59.38 mL/min; MAGNESIUM 1.9 mg/dL (1.8-2.4); POTASSIUM,K 3.5 mEq/L (3.5-5.1); PROTEIN TOTAL,TP 7.1 g/dl (6.4-8.2)
[2023-10-18] MEDS: Iopamidol 612 MG/ML 100 ML Bottle IVPUSH ONE (23:36)
[2023-10-19 01:17] LABS: APPEARANCE,URINE CLEAR (Clear); BILIRUBIN,URINE 2+ (Negative); COLOR,URINE DARK YELLOW (Yellow); GLUCOSE,URINE NEGATIVE (Negative); KETONES,URINE TRACE (Negative); LEUKOCYTE ESTERASE,URINE NEGATIVE (Negative); NITRITE,URINE NEGATIVE (Negative); OCCULT BLOOD,URINE NEGATIVE (Negative); PROTEIN,URINE TRACE (Negative)
[2023-10-19] MEDS: Calcium Carbonate 600 MG Tab PO ONE (01:37)
[2023-10-19 02:04] LABS: BACTERIA,URINE FEW /hpf (FEW); EPITHELIAL CELLS,URINE NOT SEEN /hpf (0-5); HYALINE CASTS,URINE 0-5 /lpf (0-5); MUCUS,URINE FEW /hpf (FEW); RBC,URINE NOT SEEN /hpf (0-5); WBC,URINE 0-5 /hpf (0-5)
== END 2023-10-19 01:41 | disposition home or self-care (01) ==
LOC: JD.ED 20:46
DX: K70.31 Alcoholic cirrhosis of liver with ascites (principal); I10 Essential (primary) hypertension; Z86.16 Personal history of COVID-19; Z79.899 Other long term (current) drug therapy
CPT/HCPCS: 36415; 74177; 80053; 81001; 83690; 83735; 84484; 85025; 86140; 93005; 99284; A9270; Q9967

== ENCOUNTER 2023-12-10 04:03 | Emergency (ER) | payer MEDICAID ==
[2023-12-10 04:51] LABS: BASOPHILS PERCENT AUTO 0.7 % (0.0-1.0); EOSINOPHILS ABSOLUTE AUTO 0.1 K/mm3 (0.0-0.4); EOSINOPHILS PERCENT AUTO 3.4 % (0.0-6.0); HEMATOCRIT 36.3 % (42.0-52.0); HEMOGLOBIN 12.5 gm/dl (14.0-18.0); LYMPHOCYTES ABSOLUTE AUTO 1.3 K/mm3 (1.0-4.8); LYMPHOCYTES PERCENT AUTO 45.1 % (24.0-44.0); MEAN CORPUSCULAR HEMOGLOBIN 34.3 pg (28.0-32.0); MEAN CORPUSCULAR HGB CONC 34.4 g/dl (32.0-36.0); MEAN CORPUSCULAR VOLUME 99.7 fl (83.0-99.0); MEAN PLATELET VOLUME 10.8 fl (9.4-12.4); MONOCYTES ABSOLUTE AUTO 0.5 K/mm3 (0.0-0.8); MONOCYTES PERCENT AUTO 18.3 % (0.0-8.0); NEUTROPHILS PERCENT AUTO 32.5 % (41.0-71.0); PLATELET COUNT,PLT 75 K/mm3 (150-400); RED BLOOD CELL COUNT 3.64 M/mm3 (4.52-5.90); WHITE BLOOD CELL COUNT,WBC 2.95 K/mm3 (3.9-11.3)
[2023-12-10] MEDS: Sodium Chloride 0.9% 1,000 ML IV ONE (04:55)
[2023-12-10 05:01] LABS: APPEARANCE,URINE SLT CLOUDY (Clear); BILIRUBIN,URINE 1+ (Negative); COLOR,URINE AMBER (Yellow); GLUCOSE,URINE NEGATIVE (Negative); KETONES,URINE TRACE (Negative); LEUKOCYTE ESTERASE,URINE NEGATIVE (Negative); NITRITE,URINE NEGATIVE (Negative); OCCULT BLOOD,URINE 2+ (Negative); PROTEIN,URINE 1+ (Negative)
[2023-12-10] MEDS: Iopamidol 755 Mg/ML 100 ML Bottle IVPUSH ONE (05:08)
[2023-12-10] MEDS: Sodium Chloride 0.9% 10 ML Syringe FLUSH ONE (05:08)
[2023-12-10 05:10] LABS: A/G RATIO 0.6 (1-2); ALBUMIN 2.8 g/dl (3.4-5.0); ANION GAP 10.2 (5-15); BILIRUBIN TOTAL 2.6 mg/dL (0.2-1.0); BUN/CREATININE RATIO 6.9 (14-18); CALCIUM 8.3 mg/dL (8.5-10.1); CREATININE 1.3 mg/dL (0.7-1.3); EST CRCL DRUG DOSING (CG) 57.91 mL/min; POTASSIUM,K 4.2 mEq/L (3.5-5.1); PROTEIN TOTAL,TP 7.5 g/dl (6.4-8.2)
[2023-12-10 05:13] LABS: BACTERIA,URINE FEW /hpf (FEW); EPITHELIAL CELLS,URINE 0-5 /hpf (0-5); MUCUS,URINE MANY /hpf (FEW); RBC,URINE 30-40 /hpf (0-5); WBC,URINE 0-5 /hpf (0-5)
[2023-12-10 05:33] LABS: SLIDE REVIEW ABNORMAL SMEAR
== END 2023-12-10 06:00 | disposition home or self-care (01) ==
LOC: JD.ED 04:03
DX: R10.31 Right lower quadrant pain (principal); R31.9 Hematuria, unspecified; Z86.16 Personal history of COVID-19; Z87.891 Personal history of nicotine dependence; Z79.899 Other long term (current) drug therapy
CPT/HCPCS: 36415; 74177; 80053; 81001; 85025; 99284; J3490; J7030; Q9967

== ENCOUNTER 2024-05-03 18:54 | Emergency (ER) | payer MEDICAID ==
[2024-05-03 19:43] LABS: BASOPHILS PERCENT AUTO 0.4 % (0.0-1.0); EOSINOPHILS ABSOLUTE AUTO 0.2 K/mm3 (0.0-0.4); EOSINOPHILS PERCENT AUTO 4.2 % (0.0-6.0); HEMATOCRIT 28.5 % (42.0-52.0); HEMOGLOBIN 9.3 gm/dl (14.0-18.0); IMMATURE GRAN ABSOLUTE AUTO 0.02 K/mm3 (0.00-0.05); IMMATURE GRAN PERCENT AUTO 0.4 % (0.0-0.4); LYMPHOCYTES ABSOLUTE AUTO 1.8 K/mm3 (1.0-4.8); MEAN CORPUSCULAR HEMOGLOBIN 35.5 pg (28.0-32.0); MEAN CORPUSCULAR HGB CONC 32.6 g/dl (32.0-36.0); MEAN CORPUSCULAR VOLUME 108.8 fl (83.0-99.0); MEAN PLATELET VOLUME 10.4 fl (9.4-12.4); MONOCYTES ABSOLUTE AUTO 0.6 K/mm3 (0.0-0.8); MONOCYTES PERCENT AUTO 13.3 % (0.0-8.0); NEUTROPHILS PERCENT AUTO 42.7 % (41.0-71.0); PLATELET COUNT,PLT 95 K/mm3 (150-400); RED BLOOD CELL COUNT 2.62 M/mm3 (4.52-5.90); WHITE BLOOD CELL COUNT,WBC 4.72 K/mm3 (3.9-11.3)
[2024-05-03] MEDS: Octreotide 100 MCG/ML SDV IVPUSH ONE (19:45)
[2024-05-03] MEDS: Octreotide 500 MCG in Sodium Chloride 0.9% 499 ML IV SCH (19:45)
[2024-05-03 19:47] LABS: A/G RATIO 0.4 (1-2); ALBUMIN 1.8 g/dl (3.4-5.0); ANION GAP 5.5 (5-15); BILIRUBIN TOTAL 1.5 mg/dL (0.2-1.0); BUN/CREATININE RATIO 11.9 (14-18); CREATININE 1.6 mg/dL (0.7-1.3); EST CRCL DRUG DOSING (CG) 51.33 mL/min; POTASSIUM,K 4.5 mEq/L (3.5-5.1); PROTEIN TOTAL,TP 6.1 g/dl (6.4-8.2)
[2024-05-03] MEDS: Pantoprazole 40 MG Vial IVPUSH ONE (20:13)
[2024-05-03] MEDS: Pantoprazole 80 MG in Sodium Chloride 0.9% 100 ML IV SCH (20:15)
[2024-05-03] MEDS ORDERED: Sodium Chloride 0.9% 250 ML ONE (20:22)
[2024-05-03] MEDS: Ondansetron 4 MG/2 ML SDV IVPUSH ONE (20:29)
== END 2024-05-03 21:50 ==
LOC: JD.ED 18:54
DX: K92.0 Hematemesis (principal); I10 Essential (primary) hypertension; E78.00 Pure hypercholesterolemia, unspecified; Z79.899 Other long term (current) drug therapy
CPT/HCPCS: 36415; 36430; 80053; 85025; 86850; 86900; 86901; 86922; 93005; 96365; 96366; 96368; 96375; 99285-25; J2354-JA; J2405; J2470; J7040; P9016

== ENCOUNTER 2025-01-11 17:25 | Inpatient (IN) | payer MEDICAID ==
[2025-01-11 18:37] LABS: BASOPHILS ABSOLUTE AUTO 0.1 K/mm3 (0.0-0.2); BASOPHILS PERCENT AUTO 0.7 % (0.0-1.0); EOSINOPHILS ABSOLUTE AUTO 0.0 K/mm3 (0.0-0.4); EOSINOPHILS PERCENT AUTO 0.0 % (0.0-6.0); IMMATURE GRAN ABSOLUTE AUTO 0.15 K/mm3 (0.00-0.05); IMMATURE GRAN PERCENT AUTO 1.3 % (0.0-0.4); LYMPHOCYTES ABSOLUTE AUTO 1.1 K/mm3 (1.0-4.8); LYMPHOCYTES PERCENT AUTO 9.4 % (24.0-44.0); MEAN PLATELET VOLUME 11.5 fl (9.4-12.4); MONOCYTES ABSOLUTE AUTO 0.6 K/mm3 (0.0-0.8); MONOCYTES PERCENT AUTO 5.5 % (0.0-8.0); NEUTROPHILS ABSOLUTE AUTO 9.3 K/mm3 (1.8-7.7); NEUTROPHILS PERCENT AUTO 83.1 % (41.0-71.0); NRBC ABSOLUTE 0.00 (0.00-0.02); NRBC PERCENT 0.0 % (0.0-0.2); PLATELET COUNT,PLT 75 K/mm3 (150-400); RED BLOOD CELL COUNT 3.53 M/mm3 (4.52-5.90); WHITE BLOOD CELL COUNT,WBC 11.23 K/mm3 (3.9-11.3)
[2025-01-11 19:08] LABS: A/G RATIO 0.3 (1-2); ALANINE AMINOTRANSFERASE,ALT 47.0 U/L (16-63); ASPARTATE AMNIOTRANSFERASE,AST 203.0 U/L (15-37); BILIRUBIN TOTAL 3.7 mg/dL (0.2-1.0); CARBON DIOXIDE,CO2 22.0 mEq/L (21-32); CHLORIDE,CL 102.0 mEq/L (98-107); CREATININE 3.3 mg/dL (0.7-1.3); EST CRCL DRUG DOSING (CG) 23.32 mL/min; ESTIMATED GFR 21.0 mL/min (>60); POTASSIUM,K 4.6 mEq/L (3.5-5.1); PROTEIN TOTAL,TP 7.1 g/dl (6.4-8.2); SODIUM,NA 135.0 mEq/L (136-145); TROPONIN I HIGH SENSITIVITY 22.0 pg/mL (<=76); TSH 3.93 uIU/mL (0.358-3.74)
[2025-01-11 19:11] LABS: CREATINE KINASE,CK 1318.0 U/L (39-308); ETHANOL BLOOD MEDICAL 0.0 gm% (0.00)
[2025-01-11 19:12] LABS: BLOOD UREA NITROGEN,BUN 44.0 mg/dL (7-18); GLUCOSE RANDOM 86.0 mg/dL (70-99)
[2025-01-11 19:15] LABS: LACTIC ACID 5.9 mmol/L (0.4-2.0)
[2025-01-11] MEDS: Sodium Chloride 0.9% 10 ML Syringe FLUSH PRN (19:16)
[2025-01-11 19:32] LABS: T4 FREE 1.08 ng/dL (0.76-1.46)
[2025-01-11 20:00] LABS: APPEARANCE,URINE CLEAR (Clear); GLUCOSE,URINE NEGATIVE (Negative); OCCULT BLOOD,URINE NEGATIVE (Negative)
[2025-01-11 20:09] LABS: EPITHELIAL CELLS,URINE 0-5 /hpf (0-5)
[2025-01-11 20:10] LABS: BUPRENORPHINE SCREEN,URINE NEGATIVE (CUTOFF=10); METHADONE SCREEN, URINE NEGATIVE (CUT0FF=200); METHAMPHETAMINES SCREEN, URINE PRESUMPTIVE POSITIVE (CUTOFF=500); OXYCODONE SCREEN,URINE NEGATIVE (CUT0FF=100); THC SCREEN,URINE 20 NG/ML PRESUMPTIVE POSITIVE (CUTOFF=50)
[2025-01-11 20:14] LABS: AMPHETAMINES SCREEN, URINE PRESUMPTIVE POSITIVE (CUTOFF=500)
[2025-01-11] MEDS: VANCOmycin 1.75 GM/350 ML 1.75 GM in Premix Bag 1 BAG IV ONE (20:44)
[2025-01-12 04:26] LABS: BASOPHILS ABSOLUTE AUTO 0.1 K/mm3 (0.0-0.2); BASOPHILS PERCENT AUTO 0.7 % (0.0-1.0); EOSINOPHILS ABSOLUTE AUTO 0.0 K/mm3 (0.0-0.4); EOSINOPHILS PERCENT AUTO 0.0 % (0.0-6.0); IMMATURE GRAN ABSOLUTE AUTO 0.21 K/mm3 (0.00-0.05); IMMATURE GRAN PERCENT AUTO 1.9 % (0.0-0.4); LYMPHOCYTES ABSOLUTE AUTO 0.8 K/mm3 (1.0-4.8); LYMPHOCYTES PERCENT AUTO 7.0 % (24.0-44.0); MEAN PLATELET VOLUME 12.1 fl (9.4-12.4); MONOCYTES ABSOLUTE AUTO 0.9 K/mm3 (0.0-0.8); MONOCYTES PERCENT AUTO 7.8 % (0.0-8.0); NEUTROPHILS ABSOLUTE AUTO 9.0 K/mm3 (1.8-7.7); NEUTROPHILS PERCENT AUTO 82.6 % (41.0-71.0); NRBC ABSOLUTE 0.00 (0.00-0.02); NRBC PERCENT 0.0 % (0.0-0.2); PLATELET COUNT,PLT 65 K/mm3 (150-400); RED BLOOD CELL COUNT 3.40 M/mm3 (4.52-5.90); WHITE BLOOD CELL COUNT,WBC 10.90 K/mm3 (3.9-11.3)
[2025-01-12 04:59] LABS: A/G RATIO 0.3 (1-2); ALANINE AMINOTRANSFERASE,ALT 43.0 U/L (16-63); ASPARTATE AMNIOTRANSFERASE,AST 189.0 U/L (15-37); BILIRUBIN TOTAL 3.6 mg/dL (0.2-1.0); BLOOD UREA NITROGEN,BUN 45.0 mg/dL (7-18); CARBON DIOXIDE,CO2 25.0 mEq/L (21-32); CHLORIDE,CL 105.0 mEq/L (98-107); CREATININE 2.6 mg/dL (0.7-1.3); EST CRCL DRUG DOSING (CG) 31.59 mL/min; ESTIMATED GFR 28.0 mL/min (>60); PHOSPHORUS 3.4 mg/dL (2.6-4.7); POTASSIUM,K 4.5 mEq/L (3.5-5.1); PROTEIN TOTAL,TP 6.5 g/dl (6.4-8.2); SODIUM,NA 137.0 mEq/L (136-145)
[2025-01-12 05:00] LABS: GLUCOSE RANDOM 87.0 mg/dL (70-99)
[2025-01-12] MEDS: Lactulose Soln 10 GM/15 ML 30 ML UD Cup PO SCH (08:23)
[2025-01-12] MEDS: Cholestyramine/Sucrose Powder 4 GM Packet PO SCH (08:23)
[2025-01-12] MEDS: Formoterol/Mometasone 100-5 MCG 8.8 GM Inhaler INH SCH (09:29)
[2025-01-12] MEDS: Bumetanide 1 MG/4 ML MDV IVPUSH ONE (10:26)
== END 2025-01-12 16:01 | DRG 603 ==
LOC: JD.ED 17:25 → JD.MS 20:54
PROVIDERS: ADMIT Family Medicine; ATTEND Family Medicine
DX: L03.116 Cellulitis of left lower limb (principal); E87.20 Acidosis, unspecified; N17.9 Acute kidney failure, unspecified; I10 Essential (primary) hypertension; E78.00 Pure hypercholesterolemia, unspecified; H54.7 Unspecified visual loss; M10.9 Gout, unspecified; F32.A Depression, unspecified; F12.90 Cannabis use, unspecified, uncomplicated; J44.89 Other specified chronic obstructive pulmonary disease; M25.462 Effusion, left knee; E86.0 Dehydration; K70.31 Alcoholic cirrhosis of liver with ascites; F15.90 Other stimulant use, unspecified, uncomplicated; D69.6 Thrombocytopenia, unspecified; D64.9 Anemia, unspecified; Z79.899 Other long term (current) drug therapy; Z86.16 Personal history of COVID-19
CPT/HCPCS: 36415; 71045; 71045-26; 73700-26-LT; 73700-LT; 80053; 80202; 80306; 80307; 81001; 82140; 82550; 83605; 83690; 83735; 83880; 84100; 84439; 84443; 84484; 85025; 85652; 86140; 87040; 87077; 87154; 87186; 93005; 93970; 93970-26; 94640; 94760; 96365; 96367; 99285-25; A9270-GY; J0690; J1939; J2270; J2543; J3375; J7030